=== PATIENT | female | born 1945 | race Caucasian/White ===

== ENCOUNTER 2017-08-14 10:34 | Day surgery (SDC) | payer MEDICARE, OTHER ==
[~2017-08-14] VITALS: Ht 167.6 cm; Wt 117.0 kg
[~2017-08-14 10:34] MED LIST: ASPI81CH PO; ATOR10 PO; CONEST.9 PO; HYDCHL12.5 PO; LEVO750 PO; METO25 PO; RAMI2.5 PO
[2017-08-14] MEDS ORDERED: METO100ER PO (11:19)
[2017-08-14] MEDS ORDERED: EEMT HS PO (11:20)
[2017-08-14] MEDS ORDERED: LOSA25 PO (11:22)
[2017-08-14] MEDS ORDERED: MAGOXI400 PO (11:22)
[2017-08-14] MEDS ORDERED: [UNRECOGNIZED DRUG - OTHER] PO (11:22)
[2017-08-14] MEDS ORDERED: OMEPRAZOLE MAGN20 MG PO (11:23)
== END 2017-08-14 13:45 | disposition home or self-care (01) ==
LOC: ORSCSDS 10:34
PROVIDERS: Internal Medicine Gastroenterology
PROC: 0DJD8ZZ Inspection of Lower Intestinal Tract, Via Natural or Artificial Opening Endoscopic (ICD-10-PCS; principal; 2017-08-14 12:00)
DX: Z12.11 Encounter for screening for malignant neoplasm of colon (principal); K64.8 Other hemorrhoids; K57.30 Diverticulosis of large intestine without perforation or abscess without bleeding; I10 Essential (primary) hypertension; E78.5 Hyperlipidemia, unspecified; K76.0 Fatty (change of) liver, not elsewhere classified; E66.01 Morbid (severe) obesity due to excess calories; Z68.41 Body mass index [BMI] 40.0-44.9, adult; Z79.899 Other long term (current) drug therapy